=== PATIENT | male | born 1985 | race Two or more races ===

== ENCOUNTER 2020-03-08 12:27 | Emergency (ER) | payer OTHER ==
[~2020-03-08] VITALS: Ht 167.6 cm; Wt 65.8 kg
[2020-03-08] MEDS ORDERED: ACETAMINOPHEN650 M2 PO (18:10)
[2020-03-08] MEDS ORDERED: GUAIFENESIN400 MG PO (18:10)
== END 2020-03-08 18:45 | disposition home or self-care (01) ==
LOC: ER 12:27
DX: B34.9 Viral infection, unspecified (principal); J06.9 Acute upper respiratory infection, unspecified; Z03.818 Encounter for observation for suspected exposure to other biological agents ruled out